=== PATIENT | male | born 1965 | race Asian ===

== ENCOUNTER 2021-11-09 07:48 | Outpatient (CLI) | payer OTHER ==
--- NOTE | 2021-11-09 11:41 | Ultrasound Report ---
PROCEDURE: Abdomen Complete INDICATIONS: ABD PAIN TECHNIQUE: Real-time scanning was performed of the abdominal and retroperitoneal organs, with image documentatio n. COMPARISON: None. FINDINGS: Liver: Liver is normal in size and homogeneous in echotexture. Liver is diffusely echogenic. Gallbladder: Gallbladder sonographically normal. No gallstones. Gallbladder wall measures 2.0 mm. Biliary ducts: Intrahepatic bile ducts are non-dilated. Extrahepatic bile duct caliber measures 2.0 mm. Normal is 6-7 mm or less in diameter, or 10 mm or less post-cholecystectomy. Pancreas: Visualized portions of the pancreas are sonographically normal. Spleen: Spleen is normal in size and homogeneous in echotexture. Kidneys: Kidneys are normal in size and echotexture. Right kidney measures 10.6 cm long; left kidne y measures 9.1 cm long. No hydronephrosis or nephrolithiasis. No solid masses. Aorta: Visualized aorta is normal in caliber at less than 3 cm. Iliacs: Proximal common iliac arteries are normal in caliber at less than 2.5 cm. IVC: Intrahepatic inferior vena cava is patent. Miscellaneous: No free abdominal fluid. IMPRESSION: 1. No sonographic evidence of cholelithiasis or cholecystitis. If there is continued clinical concern for cholecystitis, consider nuclear medicine HIDA scan for additional evaluation. 2. Echogenic liver. Finding typically represents hepatic steatosis, however finding is nonspecific an d other etiologies including hepatic cirrhosis can produce a similar appearance. Recommend correlatio n with clinical and laboratory data. Reviewed by: Jolie Monk MD, PhD on 11/09/2021 11:40 AM PST Approved by: Jolie Monk MD, PhD on 11/09/2021 11:40 AM PST Station ID: [id number]
== END 2021-11-09 07:49 | disposition home or self-care (01) ==
LOC: DI 07:48
PROVIDERS: ATTEND Family Medicine
DX: R10.9 Unspecified abdominal pain (principal)